=== PATIENT | female | born 1945 | race Native Hawaiian/Other Pacific Islander ===

== ENCOUNTER 2017-04-16 08:17 | Outpatient (CLI) | payer OTHER | END 2017-04-16 22:59 | disposition home or self-care (01) | LOC: NM 08:17 | DX: R07.89 Other chest pain (principal); J44.9 Chronic obstructive pulmonary disease, unspecified; I10 Essential (primary) hypertension; E11.9 Type 2 diabetes mellitus without complications | CPT/HCPCS: A9500; J2785 ==